=== PATIENT | female | born 1970 | race American Indian/Alaskan Native ===

== ENCOUNTER 2019-03-04 13:00 | Emergency (ER) | payer OTHER ==
--- NOTE | 2019-03-04 13:33 | Event Note ---
ED Screening Note Date of service: 03/04/19 Time: 13:26 ED Screening Note: headache x 1 week with left facial and arm numbness. MCELROY side headache, throbbing and tight,constant. Vomited 2 days ago in sleep. Stroke 5-6 years ago and was seen at [facility]. PCP Dr. Vidal, Past Neurologist.. Denies fever, chills or neck pain Neuro: a&O x3,GCS 15, no facial drooping, speech crear, Lv hand retail financial analyst equal. BPEARL This initial assessment/diagnostic orders/clinical plan/treatment(s) is/are subject to change based on patients health status, clinical progression and re- assessment by fellow clinical providers in the ED. Further treatment and workup at subsequent clinical providers discretion. Patient/guardian urged not to elope from the ED as their condition may be serious if not clinically assessed and managed. Initial orders include: protocol
[2019-03-04] MEDS ORDERED: diphenhydrAMINE 50 MG/ML VIAL IV ONE (14:06)
[2019-03-04] MEDS ORDERED: SUMAtriptan SUCCINATE 6 MG/0.5 ML INJ SUB-Q ONE (14:06)
[2019-03-04] MEDS ORDERED: SODIUM CHLORIDE 0.9% 1000 ML 1,000 ML IV ONE (14:06)
[2019-03-04] MEDS ORDERED: METOCLOPRAMIDE 10 MG/2 ML INJ IV ONE (14:06)
[2019-03-04 14:13] LABS: Basophils # (Auto) 0.2 K/mm3 (0.0-0.1); Basophils % (Auto) 2.1 % (0.0-1.8); Eosinophils # (Auto) 0.3 K/mm3 (0.0-0.4); Hematocrit 39.3 % (30.3-42.9); Hemoglobin 12.6 gm/dl (10.1-14.3); Lymphocytes # (Auto) 2.9 K/mm3 (1.2-5.4); Lymphocytes % (Auto) 32.2 % (13.4-35.0); Mean Corpuscular HGB Conc 32 % (30-34); Mean Corpuscular Volume 71 fl (79-97); Monocytes # (Auto) 0.8 K/mm3 (0.0-0.8); Monocytes % (Auto) 8.7 % (0.0-7.3); Platelet Count 258 K/mm3 (140-440); Red Blood Count 5.53 M/mm3 (3.65-5.03); Red Cell Distribution Width 15.3 % (13.2-15.2)
[2019-03-04 14:24] LABS: Partial Thromboplastin Time 25.8 Sec. (24.2-36.6)
[2019-03-04 14:52] LABS: Alanine Aminotransferase 9 units/L (7-56); Albumin 4.3 g/dL (3.9-5); BUN/Creatinine Ratio 18; Blood Urea Nitrogen 11 mg/dL (7-17); Calcium 10.7 mg/dL (8.4-10.2); Hemolysis Index 11
--- NOTE | 2019-03-04 15:07 | Emergency Department Report ---
ED Headache HPI - General Chief Complaint: Headache Stated Complaint: LEFT FACE,ARM NUMBNESS AND HEADACHE Time Seen by Provider: 03/04/19 13:25 - History of Present Illness Initial Comments: Patient is a 48-year-old female presents emergency room with complaints of a left-sided headache that began one week ago. She states she also has tingling in the left side of her face and the left fingers which has also been there for a week. She denies any vision changes, unilateral weakness, fever, neck stiffness, speech disturbance, gait disturbance. Patient has a past medical history of hypertension, hyperlipidemia, CVA, fibromyalgia, DM. she states she used to see a neurologist but has not seen them in a long time. Allergies/Adverse Reactions: Allergies morphine Allergy (Verified 07/20/15 01:19) Unknown Home Medications: Ambulatory Orders Empagliflozin (Nf) [Jardiance (Nf)] 25 mg PO DAILY 07/20/15 HYDROcodone/APAP 7.5-325 1 tab PO Q6HR PRN 07/20/15 Insulin Glargine [Lantus VIAL] 50 unit SUB-Q QHS 07/20/15 Tizanidine HCl [Zanaflex] 2 mg PO QHS 07/20/15 Aspirin EC [Halfprin EC] 81 mg PO QDAY #30 tablet. 07/21/15 Butalb/Acetamin/Caff 50-325-40 [Fioricet] 1 tab PO Q6HR PRN #20 tab 07/21/15 Simvastatin [Zocor TAB] 40 mg PO QHS #30 tablet 07/21/15 Butalb/Acetaminophen/Caffeine [Fioricet 50-300-40 mg CAP] 1 cap PO Q8HR PRN #7 cap 03/04/19 ED Review of Systems ROS: Stated complaint: LEFT FACE,ARM NUMBNESS AND HEADACHE Other details as noted in HPI Comment: All other systems reviewed and negative ED Past Medical Hx - Past Medical History Previous Medical History?: Yes Hx Hypertension: Yes Hx CVA: Yes Hx Diabetes: Yes Hx Headaches / Migraines: Yes - Surgical History Past Surgical History?: Yes Hx Cholecystectomy: Yes Additional Surgical History: ceasean x2, hysterectomy - Social History Smoking Status: Current Every Day Smoker Substance Use Type: Alcohol, Prescribed, Other - Medications Home Medications: Home Medications Medication Instructions Recorded Confirmed Last Taken Type Empagliflozin (Nf) [Jardiance (Nf)] 25 mg PO DAILY 07/20/15 07/20/15 Unknown History HYDROcodone/APAP 7.5-325 1 tab PO Q6HR PRN 07/20/15 07/20/15 Unknown History Insulin Glargine [Lantus VIAL] 50 unit SUB-Q QHS 07/20/15 07/20/15 Unknown History Tizanidine HCl [Zanaflex] 2 mg PO QHS 07/20/15 07/20/15 Unknown History Aspirin EC [Halfprin EC] 81 mg PO QDAY #30 tablet. 07/21/15 Unknown Rx Butalb/Acetamin/Caff 50-325-40 1 tab PO Q6HR PRN #20 tab 07/21/15 Unknown Rx [Fioricet] Simvastatin [Zocor TAB] 40 mg PO QHS #30 tablet 07/21/15 Unknown Rx Butalb/Acetaminophen/Caffeine 1 cap PO Q8HR PRN #7 cap 03/04/19 Unknown Rx [Fioricet 50-300-40 mg CAP] ED Physical Exam - General Limitations: No Limitations General appearance: alert, in no apparent distress - Head Head exam: Present: atraumatic, normocephalic - Eye Eye exam: Present: normal appearance, PERRL, EOMI - ENT ENT exam: Present: mucous membranes moist - Neck Neck exam: Present: full ROM. Absent: meningismus - Respiratory Respiratory exam: Present: normal lung sounds bilaterally. Absent: respiratory distress, wheezes, rales, rhonchi, stridor, chest wall tenderness, accessory muscle use, decreased breath sounds, prolonged expiratory - Cardiovascular Cardiovascular Exam: Present: regular rate, normal rhythm, normal heart sounds. Absent: systolic murmur, diastolic murmur, rubs, gallop - Neurological Exam Neurological exam: Present: alert, oriented X3, normal gait, other (decreased sensation to the entire left face, motor control of face is normal, no facial asymmetry, equal cable dispatcher strength, 5/5 strength in the BUE/BLE, normal finger to nose, normal heel to servin, no pronator drift) - Psychiatric Psychiatric exam: Present: normal affect, normal mood - Skin Skin exam: Present: warm, dry, intact ED Course Vital Signs 03/04/19 03/04/19 13:08 16:21 Temperature 98.1 F Pulse Rate 82 75 Respiratory 18 16 Rate Blood Pressure 162/90 Blood Pressure 142/77 [Left] O2 Sat by Pulse 99 100 Oximetry ED Medical Decision Making - Lab Data Result diagrams: 03/04/19 13:56 03/04/19 13:56 - Radiology Data Radiology results: report reviewed Ordering Physician: LAVELLE ALCANTAR Date of Service: 03/04/19 Procedure(s): CT head/brain wo con Accession Number(s): [id number] cc: LAVELLE ALCANTAR CT head/brain wo con INDICATION: Headache. TECHNIQUE: Routine CT head without contrast. All CT scans at this location are performed using CT dose reduction for ALARA by means of automated exposure control. COMPARISON: Brain MRI on 07/20/2015. FINDINGS: BRAIN / INTRACRANIAL CONTENTS: No acute hemorrhage, mass effect, midline shift, or hydrocephalus. No appreciable acute large territorial or lacunar infarct. There is a stable chronic lacunar infarct in the right posterior lenticular region. ORBITS: No significant abnormality of visualized orbits. SINUSES / MASTOIDS: No significant abnormality of visualized sinuses and mastoid air cells. ADDITIONAL FINDINGS: None. IMPRESSION: 1. No acute intracranial abnormality. Signer Name: Anmol Jules MD Signed: 03/04/2019 3:45 PM Workstation Name: [id number] Transcribed By: ARMANDO Dictated By: Anmol Jules MD Electronically Authenticated By: Anmol Jules MD Signed Date/Time: 03/04/19 1545 - Medical Decision Making Patient is a 48-year-old female presents emergency room with complaints of a left-sided headache that began one week ago. She states she also has tingling in the left side of her face and the left fingers which has also been there for a week. She denies any vision changes, unilateral weakness, fever, neck stiffness, speech disturbance, gait disturbance. Patient has a past medical history of hypertension, hyperlipidemia, CVA, fibromyalgia, DM. she states she used to see a neurologist but has not seen them in a long time. VSS. on exam: decreased sensation to the entire left face, motor control of face is normal, no facial asymmetry, equal cable dispatcher strength, 5/5 strength in the BUE/BLE, normal finger to nose, normal heel to servin, no pronator drift. labs are stable. CT head: 1. No acute intracranial abnormality. pt given medications for a MCELROY and it completely resolved, she states she is feeling much better. discussed case with Dr. Vilma Whitt who states pt can follow up as an outpatient with neurology. pt given prescription for fioricet. advised pt to Please take medication as prescribed as needed. Increase your fluid intake. Follow-up with a neurologist in the next 2-3 days for further examination. Return to the emergency room for any new or worsening symptoms. - Differential Diagnosis CVA, migraine, tension/cluster MCELROY, ICH, bells palsy, trigeminal neuraglia Critical care attestation.: If time is entered above; I have spent that time in minutes in the direct care of this critically ill patient, excluding procedure time. ED Disposition Clinical Impression: Left face and left arm tingling Headache Qualifiers: Headache type: unspecified Headache chronicity pattern: acute headache Intractability: not intractable Qualified Code(s): R51 - Headache Disposition: DC- TO HOME OR SELFCARE Is pt being admited?: No Does the pt Need Aspirin: No Condition: Stable Instructions: Acute Headache (ED), Paresthesia (ED) Additional Instructions: Please take medication as prescribed as needed. Increase your fluid intake. Follow-up with a neurologist in the next 2-3 days for further examination. Return to the emergency room for any new or worsening symptoms. Prescriptions: Butalb/Acetaminophen/Caffeine [Fioricet 50-300-40 mg CAP] 1 cap PO Q8HR PRN #7 cap PRN Reason: headache Referrals: JASON QUINTANILLA MD [Referring] - 2-3 Days CHRIS NOYOLA MD [Staff Physician] - 2-3 Days Time of Disposition: 15:53 Print Language: FRENCH
--- NOTE | 2019-03-04 15:50 | Cat Scan Report ---
CT head/brain wo con INDICATION: Headache. TECHNIQUE: Routine CT head without contrast. All CT scans at this location are performed using CT dos e reduction for ALARA by means of automated exposure control. COMPARISON: Brain MRI on 07/20/2015. FINDINGS: BRAIN / INTRACRANIAL CONTENTS: No acute hemorrhage, mass effect, midline shift, or hydrocephalus. No appreciable acute large territorial or lacunar infarct. There is a stable chronic lacunar infarct in the right posterior lenticular region. ORBITS: No significant abnormality of visualized orbits. SINUSES / MASTOIDS: No significant abnormality of visualized sinuses and mastoid air cells. ADDITIONAL FINDINGS: None. IMPRESSION: 1. No acute intracranial abnormality. Signer Name: Anmol Jules MD Signed: 03/04/2019 3:45 PM Workstation Name: [id number]
[2019-03-04 16:21] VITALS: BP 142/77
== END 2019-03-04 16:21 | disposition home or self-care (01) ==
LOC: ED 13:00
DX: G43.909 Migraine, unspecified, not intractable, without status migrainosus (principal); R20.2 Paresthesia of skin; I10 Essential (primary) hypertension; E78.5 Hyperlipidemia, unspecified; M79.7 Fibromyalgia; E11.9 Type 2 diabetes mellitus without complications; F17.200 Nicotine dependence, unspecified, uncomplicated; Z86.73 Personal history of transient ischemic attack (TIA), and cerebral infarction without residual deficits; Z79.82 Long term (current) use of aspirin; Z79.899 Other long term (current) drug therapy; Z79.4 Long term (current) use of insulin; Z90.49 Acquired absence of other specified parts of digestive tract; Z90.710 Acquired absence of both cervix and uterus; Z88.5 Allergy status to narcotic agent
CPT/HCPCS: 36415; 70450; 80053; 85025; 85610; 85730; 96372; 96374; 96375; 99284; J1200; J2765; J7030; J3030